=== PATIENT | female | born 1950 | race Caucasian/White ===

== ENCOUNTER 2018-09-05 07:51 | Day surgery (SDC) | payer OTHER ==
[~2018-09-05] VITALS: Ht 154.9 cm; Wt 80.7 kg
[~2018-09-05 07:51] MED LIST: ESOM1CAP5 PO; LOSA100T5 PO; NS 1,000 ML IV SCH; SIMV20TA2 PO
[2018-09-05] MEDS ORDERED: PROPOFOL 200 MG/20 ML VIAL As Ordered ONE (08:23)
[2018-09-05] MEDS ORDERED: LIDOCAINE 2% INJ 100 MG/5 ML SDV (FOR ANES.) As Ordered ONE (08:35)
--- NOTE | 2018-09-05 09:48 | ROOR ---
Patient Name: Danielle Mayberry Procedure Date: 09/05/2018 9:06 AM Date of : 1950 Age: 67 Room: [facility] Gender: Female Note Status: Finalized Procedure: Colonoscopy Indications: High risk colon cancer surveillance: Personal history of colonic polyps Providers: Matt Bass MD Referring MD: Giulia Yoon MD Requesting Provider: Medicines: Monitored Anesthesia Care Complications: No immediate complications. Procedure: Pre-Anesthesia Assessment: - Prior to the procedure, a History and Physical was performed, and patient medications and allergies were reviewed. The patient is competent. The risks and benefits of the procedure and the sedation options and risks were discussed with the patient. All questions were answered and informed consent was obtained. Patient identification and proposed procedure were verified by the physician, the nurse and the anesthesiologist in the endoscopy suite. Mental Status Examination: alert and oriented. Airway Examination: normal oropharyngeal airway and neck mobility. Respiratory Examination: clear to auscultation. CV Examination: normal. Prophylactic Antibiotics: The patient does not require prophylactic antibiotics. Prior Anticoagulants: The patient has taken no previous anticoagulant or antiplatelet agents. ASA Grade Assessment: II - A patient with mild systemic disease. After reviewing the risks and benefits, the patient was deemed in satisfactory condition to undergo the procedure. The anesthesia plan was to use monitored anesthesia care (MAC). Immediately prior to administration of medications, the patient was re-assessed for adequacy to receive sedatives. The heart rate, respiratory rate, oxygen saturations, blood pressure, adequacy of pulmonary ventilation, and response to care were monitored throughout the procedure. The physical status of the patient was re-assessed after the procedure. The Colonoscope was introduced through the anus and advanced to the cecum, identified by appendiceal orifice and ileocecal valve. The colonoscopy was somewhat difficult due to a redundant colon. The patient tolerated the procedure well. The quality of the bowel preparation was good. Findings: Hemorrhoids were found on perianal exam. Multiple medium-mouthed diverticula were found in the sigmoid colon, descending colon and transverse colon. There was no evidence of diverticular bleeding. A 10 mm polyp was found in the appendiceal orifice. The polyp was semi-pedunculated. The polyp was removed with a hot snare. Resection and retrieval were complete. Estimated blood loss: none. A 10 mm polyp was found in the ascending colon. The polyp was semi-pedunculated. The polyp was removed with a hot snare. Resection and retrieval were complete. Estimated blood loss was minimal. Two sessile polyps were found in the recto-sigmoid colon. The polyps were 2 to 3 mm in size. These polyps were removed with a jumbo cold forceps. Resection and retrieval were complete. Estimated blood loss was minimal. The retroflexed view of the distal rectum and anal verge was normal and showed no anal or rectal abnormalities. Impression: - Hemorrhoids found on perianal exam. - Moderate diverticulosis in the sigmoid colon, in the descending colon and in the transverse colon. There was no evidence of diverticular bleeding. - One 10 mm polyp at the appendiceal orifice, removed with a hot snare. Resected and retrieved. - One 10 mm polyp in the ascending colon, removed with a hot snare. Resected and retrieved. - Two 2 to 3 mm polyps at the recto-sigmoid colon, removed with a jumbo cold forceps. Resected and retrieved. - The distal rectum and anal verge are normal on retroflexion view. Recommendation: - Discharge patient to home (ambulatory). - Repeat colonoscopy in 3 years for surveillance based on pathology results. - High fiber diet indefinitely. Matt Bass MD Matt Bass MD 09/05/2018 9:48:02 AM This report has been signed electronically. Number of Addenda: 0 Note Initiated On: 09/05/2018 9:06 AM Estimated Blood Loss: Estimated blood loss was minimal.
[2018-09-05 10:20] VITALS: BP 126/81
== END 2018-09-05 10:19 | disposition home or self-care (01) ==
LOC: M OPP 07:51
PROVIDERS: ATTEND Surgery
DX: Z12.11 Encounter for screening for malignant neoplasm of colon (principal); Z86.010 Personal history of colon polyps; K64.9 Unspecified hemorrhoids; D12.1 Benign neoplasm of appendix; D12.2 Benign neoplasm of ascending colon; D12.7 Benign neoplasm of rectosigmoid junction; K57.30 Diverticulosis of large intestine without perforation or abscess without bleeding; K21.9 Gastro-esophageal reflux disease without esophagitis; Z79.899 Other long term (current) drug therapy

== ENCOUNTER → 2019-01-09 | Outpatient (REF) | payer OTHER ==
[~2019-01-09] MED LIST changes: -NS 1,000 ML IV SCH
[2019-01-12 10:22] LABS: HPV LOW VOL RFLX Negative (Negative)
== END ==
LOC: M LAB REF 13:22
PROVIDERS: ATTEND Family Medicine
DX: Z01.419 Encounter for gynecological examination (general) (routine) without abnormal findings (principal)
CPT/HCPCS: 87624; G0123

== ENCOUNTER → 2021-05-10 | Outpatient (CLI) | payer OTHER ==
[~2021-05-10] MED LIST changes: -SIMV20TA2 PO; +SIMV20TA22 PO
--- NOTE | 2021-05-10 09:24 | REPMRS ---
Patient History The patient states she has not had a clinical breast exam in over a year. Patient is postmenopausal. Family history of unknown cancer in father. No breast complaints today Patient signed the MRS sheet No vaccine Priors done @ [facility] PACS Patient Identification Verified Digital Woman Screen Mammo: May 10, 2021 - Exam #: [id number] Bilateral CC and MLO view(s) were taken. Technologist: Jodee Vaca, Technologist Prior study comparison: March 29, 2019, bilateral digital mammo screening bilat, performed at [facility]. March 28, 2018, bilateral digital mammo screening bilat, performed at [facility]. March 13, 2017, bilateral digital mammo screening bilat, performed at [facility] [place]. FINDINGS: The breast tissue is almost entirely fat. The Volpara volumetric breast density category is: A. There has been no change in the appearance of the mammogram from the prior studies. There is no interval development of dominant mass, architectural distortion, or grouped microcalcification typical of malignancy. 3-D tomosynthesis shows no additional findings. Assessment: BI-RADS/ACR category 1 mammogram. Negative Mammogram. Recommendation Routine screening mammogram of both breasts in 1 year (for women over age 40). This patient's [facility] Lifetime Breast Cancer Risk is estimated at 4.5 %. This mammogram was interpreted with the aid of an FDA-approved computer-aided dectection system. Electronically Signed By: Onur Garcia MD 05/10/21 0923
--- NOTE | 2021-05-10 09:46 | DEXAMM ---
INDICATION: [facility] SCREEN FOR OSTEOPOROSIS. COMPARISON: February 05, 2015. TECHNIQUE: Bone density was measured using dual-energy x-ray absorptionmetry (DEXA). FINDINGS: AP SPINE L1-L4 BMD 1.285 g/cm2 Young Adult T-Score 0.7 Age Matched Z-Score 2.4. LT FEMUR, TOTAL BMD 0.968 g/cm2 Young Adult T-Score -0.3 Age Matched Z-Score 1.2. LT NECK BMD 0.890 g/cm2 Young Adult T-Score -1.1 Age Matched Z-Score 0.6. RT FEMUR, TOTAL BMD 1.111 g/cm2 Young Adult T-Score 0.8 Age Matched Z-Score 2.3. RT NECK BMD 0.988 g/cm2 Young Adult T-Score -0.4 Age Matched Z-Score 1.3. IMPRESSION: There is normal bone density of the spine. There is low bone density of the left hip. There is normal bone density of the right hip. The density of the spine has increased 15.2% since the initial exam on December 25, 2007. The density of the spine increased 11.0% since most recent exam on February 05, 2015. The density of the left hip has decreased 12.4% since initial exam on December 25, 2007. The density of the left hip has decreased 10.0% since most recent exam on February 05, 2015. The density of the right hip has decreased 2.3% since the initial exam on December 25, 2007. The density of the right hip has decreased 4.4% since the most recent exam on February 05, 2015. FOLLOW-UP: Recommendation for the next bone density exam: 2 years. <Electronically signed by Onur Garcia > 05/10/21 0942
== END ==
LOC: M WHC 08:03
PROVIDERS: ATTEND Nurse Practitioner Family
DX: Z12.31 Encounter for screening mammogram for malignant neoplasm of breast (principal); Z13.820 Encounter for screening for osteoporosis; Z80.9 Family history of malignant neoplasm, unspecified; M85.851 Other specified disorders of bone density and structure, right thigh

== ENCOUNTER → 2023-03-20 | Outpatient (CLI) | payer OTHER | LOC: M WHC 12:09 | PROVIDERS: ATTEND Nurse Practitioner Family | DX: Z12.31 Encounter for screening mammogram for malignant neoplasm of breast (principal) ==

== ENCOUNTER → 2024-04-01 | Outpatient (CLI) | payer OTHER ==
[~2024-04-01] MED LIST changes: +ESOM1CAP20 PO; -ESOM1CAP5 PO
== END ==
LOC: M WHC 16:10
PROVIDERS: ATTEND Nurse Practitioner Family
DX: Z12.31 Encounter for screening mammogram for malignant neoplasm of breast (principal)

== ENCOUNTER → 2025-04-02 | Outpatient (CLI) | payer OTHER | LOC: M WHC 08:50 | PROVIDERS: ATTEND Nurse Practitioner Family | DX: Z12.31 Encounter for screening mammogram for malignant neoplasm of breast (principal); R92.313 Mammographic fatty tissue density, bilateral breasts ==